=== PATIENT | female | born 1940 | race Caucasian/White ===

== ENCOUNTER 2022-03-14 20:16 | Inpatient (IN) | payer OTHER ==
[2022-03-14 20:31] VITALS: BMI 26.4
[2022-03-14 21:36] LABS: BASO % 0.7 % (0-2.0); EOS % 3.4 % (0-4.5); HEMATOCRIT 47.2 % (32.4-45.2); HEMOGLOBIN 14.9 GM/dL (10.7-15.3); LYMPH % 17.4 % (8-40); MCH 26.1 pg (25.7-33.7); MCHC 31.5 g/dl (32.0-36.0); MEAN CELL VOLUME 82.7 fl (80-96); MEAN PLT VOLUME 7.6 fl (7.5-11.1); MONO % 12.1 % (3.8-10.2); NEUT % 66.4 % (42.8-82.8); PLATELET COUNT 388 10^3/uL (134-434); RDW 15.4 % (11.6-15.6)
[2022-03-14 21:45] LABS: INR 1.13 (0.83-1.09)
[2022-03-14 21:57] LABS: CALCIUM 10.3 mg/dL (8.5-10.1)
[2022-03-14 21:58] LABS: ALBUMIN 3.4 g/dl (3.4-5.0); BLOOD UREA NITROGEN 22.3 mg/dL (7-18)
[2022-03-14 22:02] LABS: BILIRUBIN,TOTAL 1.1 mg/dL (0.2-1)
[2022-03-14 22:04] LABS: TOT PROT 7.4 g/dl (6.4-8.2)
[2022-03-15] MEDS ORDERED: ACETAMINOPHEN 325 MG TABLET (FP) PO ONE (02:18)
[2022-03-15] MEDS ORDERED: SODIUM CHLORIDE 1,000 ML IV SCH (02:30)
[2022-03-15] MEDS ORDERED: ACETAMINOPHEN 325 MG TABLET (FP) ONE (06:25)
[2022-03-15] MEDS ORDERED: INSULIN SLIDING SCALE (NOVOLOG) 1 VIAL SQ SCH (07:00)
[2022-03-15 09:01] LABS: BASO % 0.5 % (0-2.0); EOS % 0.7 % (0-4.5); HEMATOCRIT 42.6 % (32.4-45.2); HEMOGLOBIN 13.6 GM/dL (10.7-15.3); LYMPH % 29.8 % (8-40); MCH 26.4 pg (25.7-33.7); MCHC 31.9 g/dl (32.0-36.0); MEAN CELL VOLUME 82.6 fl (80-96); MEAN PLT VOLUME 7.7 fl (7.5-11.1); MONO % 12.4 % (3.8-10.2); NEUT % 56.6 % (42.8-82.8); PLATELET COUNT 372 10^3/uL (134-434); RBC 5.15 M/mm3 (3.60-5.2); RDW 14.8 % (11.6-15.6); WHITE BLOOD COUNT 7.5 K/mm3 (4.0-10.0)
[2022-03-15 09:29] LABS: ALBUMIN 3.2 g/dl (3.4-5.0); BLOOD UREA NITROGEN 23.5 mg/dL (7-18); CALCIUM 9.8 mg/dL (8.5-10.1)
[2022-03-15 09:30] LABS: MAGNESIUM 2.1 mg/dL (1.8-2.4)
[2022-03-15 09:34] LABS: BILIRUBIN,TOTAL 0.9 mg/dL (0.2-1); CREATININE 0.8 mg/dL (0.55-1.3); TOT PROT 6.8 g/dl (6.4-8.2)
[2022-03-15 09:35] LABS: N-TERMINAL BNP 54.2 pg/ml (5-450)
[2022-03-15] MEDS ORDERED: MEMANTINE HCL 5 MG TABLET (UD) PO SCH (10:00)
[2022-03-15] MEDS ORDERED: ENOXAPARIN NA (PORCINE) 40 MG/0.4 ML DISP.SYRIN SQ SCH (10:00)
[2022-03-15] MEDS ORDERED: amLODIPine BESYLATE 5 MG TABLET (FP) PO SCH (10:00)
[2022-03-15 10:19] VITALS: PULSE 78; RESP 18
[2022-03-15] MEDS ORDERED: amLODIPine BESYLATE 5 MG TABLET (FP) ONE (11:34)
[2022-03-15] MEDS ORDERED: ENOXAPARIN NA (PORCINE) 40 MG/0.4 ML DISP.SYRIN SQ ONE (11:35)
[2022-03-15 12:49] VITALS: BP 127/74; TEMP 98
[2022-03-15] MEDS ORDERED: ATORVASTATIN CA 10 MG TABLET (FP) PO SCH (22:00)
== END 2022-03-15 12:55 | disposition home or self-care (01) | DRG 312 ==
LOC: JER 20:16 → JERBED 22:48 → OBSVTOIN 03-15 01:34
PROVIDERS: ADMIT Internal Medicine; ATTEND Internal Medicine
DX: R55 Syncope and collapse (principal); E11.9 Type 2 diabetes mellitus without complications; I10 Essential (primary) hypertension; E78.5 Hyperlipidemia, unspecified; I45.10 Unspecified right bundle-branch block; D32.9 Benign neoplasm of meninges, unspecified; Y92.89 Other specified places as the place of occurrence of the external cause; W01.0XXA Fall on same level from slipping, tripping and stumbling without subsequent striking against object, initial encounter; M41.9 Scoliosis, unspecified; Y99.9 Unspecified external cause status
CPT/HCPCS: 0241U-QW; 36415; 70450-TC; 71045-TC-FY; 72125-TC; 80053; 80061; 82962; 83036; 83735; 83880; 84100; 84443; 84484; 85025; 85610; 93005; 93010; 93306-TC; 93880-TC; 99285-25; G0378